=== PATIENT | female | born 1965 | race Caucasian/White ===

== ENCOUNTER → 2022-04-05 | Outpatient (CLI) | payer BC ==
--- NOTE | 2022-04-06 11:27 | XR ---
Lumbar spine HISTORY: Low back pain 3 views the lumbar spine No comparisons There is multilevel spondylosis. Loss of disc height is present intervertebral levels. Sclerosis is n oted in the posterior elements of the lower lumbar spine. Bone mineralization is reduced. Lumbar vert ebral bodies show preserved height and alignment, question a slight spinal curvature possibly positio nal. IMPRESSION: Degenerative disc disease, facet arthropathy and possible osteopenia.
== END | disposition home or self-care (01) ==
LOC: RADXRYALE 15:05
PROVIDERS: ATTEND Nurse Practitioner
DX: M51.36 Other intervertebral disc degeneration, lumbar region (principal)
CPT/HCPCS: 72100

== ENCOUNTER → 2022-05-07 | Outpatient (CLI) | payer BC ==
--- NOTE | 2022-05-07 12:53 | BD ---
EXAMINATION TYPE: Axial Bone Density DATE OF EXAM: 05/07/2022 COMPARISON: NONE CLINICAL HISTORY: 56 years year old Female. ICD-10 CODE: Z78.0 ASYMPTOMATIC MENOPAUSAL STATE Height: 64 Weight: 168.8 FRAX RISK QUESTIONS: Alcohol (3 or more units per day): no Family History (Parent hip fracture): no Glucocorticoids (More than 3mos): no (Ex: prednisone, prednisolone, methylprednisolone, dexamethasone, and hydrocortisone). History of Fracture in Adulthood: no Secondary Osteoporosis: 1. Type 1 Diabetes: no 2. Hyperthyroidism: no 3. Menopause before 45: no 4. Malnutrition: no 5. Chronic liver disease: no Rheumatoid Arthritis: no Current Tobacco Use: no RISK FACTORS HISTORY OF: Surgery to Spine/Hip(right/left)/Wrist (right/left): no Family History of Osteoporosis: no Active: yes Diet low in dairy products/other sources of calcium: yes Postmenopausal woman: yes Lost more than 2 inches in height since high school: no MEDICATIONS: Thyroid Medications: levothyroxine How Lon years Additional History: EXAM MEASUREMENTS: Bone mineral densitometry was performed using the [employer] System. Bone mineral density as measured about the Lumbar spine is: ----- L1-L4(G/cm2): 0.988 T Score Values are as follows: ----- L1: -1.6 ----- L2: -2.6 ----- L3: -0.9 ----- L4: -1.5 ----- L1-L4: -1.6 Bone mineral density : baseline Bone mineral density about the R hip (g/cm2): 0.838 Bone mineral density about the L hip (g/cm2): 0.772 T Score values are as follows: -----R Neck: -1.4 -----L Neck: -1.9 -----R Total: -0.6 -----L Total: -0.8 Bone mineral density : baseline FRAX%s: The graph provided illustrates a 8.7% chance for a major osteoporotic fx and a 1.0% chance fo r the hips probability for fx in 10 years time. IMPRESSION: Osteopenia (T Score between -2.5 and -1). There is slightly increased risk of fracture and the patient may be considered for treatment. Re-Screen 2-5 years. NOTE: T-SCORE=SD OF THE YOUNG ADULT MEAN.
--- NOTE | 2022-05-13 18:48 | MM ---
Reason for Exam: Screening (asymptomatic). Last mammogram was performed 4 year(s) and 7 month(s) ago. Patient History: Menarche at age 12. First Full-Term at age 25. Postmenopausal. 2012, Stereotactic Core Biopsy on the Left side. Maternal unspecified had breast cancer. Risk Values: Mitali 5 year model risk: 1.6%. NCI Lifetime model risk: 9.1%. Prior Study Comparison: 12/29/2004 Bilateral Screening Mammogram, [facility]. 02/26/2015 Bilateral MG screening mammo w CAD - 2, [facility]. 09/30/2017 Bilateral MG 3D screening mammo w/cad, [facility]. Tissue Density: The breast tissue is heterogeneously dense. This may lower the sensitivity of mammography. Findings: Analyzed By CAD. Microclip left breast from prior biopsy. Areas of asymmetric density in both breasts are unchanged. Overall Assessment: Benign, BI-RAD 2 Management: Screening Mammogram of both breasts in 1 year. 1. Patient should continue monthly self breast exams. 2. A clinical breast exam by your physician is recommended on an annual basis. 3. This exam should not preclude additional follow-up of suspicious palpable abnormalities. Electronically signed and approved by: Randell Chase M.D. Radiologist
== END | disposition home or self-care (01) ==
LOC: RADMAMWWP 07:44
PROVIDERS: ATTEND Family Medicine
DX: Z12.31 Encounter for screening mammogram for malignant neoplasm of breast (principal); Z78.0 Asymptomatic menopausal state; M85.89 Other specified disorders of bone density and structure, multiple sites
CPT/HCPCS: 77067; 77080

== ENCOUNTER → 2024-03-23 | Outpatient (CLI) | payer BC ==
--- NOTE | 2024-03-23 09:37 | MM ---
Reason for Exam: Follow-up at short interval from prior study. Last screening mammogram was performed 10 month(s) ago. Patient History: Menarche at age 12. First Full-Term at age 25. Postmenopausal. Patient has history of breast feeding. 2013, Stereotactic Core Biopsy on the Left side. Risk Values: Mitali 5 year model risk: 1.7%. NCI Lifetime model risk: 8.7%. Prior Study Comparison: 05/07/2022 Bilateral MG screening mammo w CAD, [facility]. 05/12/2023 Bilateral MG screening mammo w CAD, [facility]. 05/17/2023 Right MG 3D work up w/cad RT, [facility]. Tissue Density: Right: The breasts are heterogeneously dense, which may obscure small masses. Findings: Analyzed By CAD. Pattern appears stable. Patient return to screening mammography on schedule. No suspicious groups of microcalcifications, spiculated or lobular masses, architectural distortion or other secondary signs of malignancy are mammographically apparent. Overall Assessment: Benign, BI-RAD 2 Management: Screening Mammogram of both breasts in 3 months. A negative mammogram report should not preclude additional follow up of suspicious palpable abnormalities. Patient should continue monthly self breast exam. A clinical breast exam by your physician is recommended on an annual basis and results should be correlated with mammographic findings. Note on Mitali scores and lifetime risk: 1. A Mitali score greater than 3% is considered moderate risk. If this is the case, consider specialist referral to assess eligibility for a risk reducing agent. 2. If overall lifetime risk for the development of breast cancer is 20% or higher, the patient may qualify for future screening with alternating mammogram and breast MRI. Electronically signed and approved by: Volodymyr Salazar D.O. Radiologis
--- NOTE | 2024-03-25 17:24 | US ---
EXAMINATION TYPE: US pelvis complete transvag DATE OF EXAM: 03/23/2024 COMPARISON: NONE CLINICAL INDICATION: Female, 58 years old with history of N81.4 UTEROVAGINAL PROLAPSE; Patient states her uterus was falling out per her doctor yesterday. TECHNIQUE: Transvaginal (TV) and Transabdominal (TA) . Date of LMP: INBOUND TELEMARKETER, EXAM MEASUREMENTS: Uterus: 8.5 x 4.4 x 3.6 cm Endometrial Stripe: 0.2 cm 1. Uterus: Retroverted Heterogenous. Fundal focal nodular appearing fibroid- 3.6 x 3.9 x 2.9 cm 2. Endometrium: echogenic focus seen = 0.4 cm 3. Right Ovary: Obscured by overlying bowel gas 4. Left Ovary: Obscured by overlying bowel gas 5. Bilateral Adnexa: no free fluid 6. Posterior cul-de-sac: no free fluid Cervix- nabothian cysts Incidental nabothian cysts. Both ovaries are not visualized due to overlying bowel gas. Nonspecific e chogenic calcification within the endometrium. Endometrium normal thickness. No free fluid. Heterogen ous focal fundal intramural fibroid measuring up to 3.9 cm. No ultrasound evidence of uterine prolaps e at this time. IMPRESSION: 1. Fibroid changes of the uterus. 2. Nonvisualization of both ovaries due to overlying bowel gas.
== END | disposition home or self-care (01) ==
LOC: RADMAMWWP 08:49
PROVIDERS: ATTEND Family Medicine
DX: R92.331 Mammographic heterogeneous density, right breast (principal); N81.4 Uterovaginal prolapse, unspecified; D25.9 Leiomyoma of uterus, unspecified; Z78.0 Asymptomatic menopausal state
CPT/HCPCS: 76830; 76856; 77061; 77065

== ENCOUNTER → 2024-04-05 | Outpatient (CLI) | payer BC ==
--- NOTE | 2024-04-05 17:54 | US ---
EXAMINATION TYPE: US thyroid st tissue head/neck DATE OF EXAM: 04/05/2024 COMPARISON: NONE CLINICAL INDICATION: Female, 58 years old with history of E04.1 THYROID NODULE; hx of thyroid nodule. Pt states she has been on thyroid medication for years GLAND SIZE: Right Lobe: 2.9 x 1.4 x 1.2 cm Overall Parenchyma: heterogeneous Left Lobe: 3.6 x 1.2 x 1.0 cm Overall Parenchyma: heterogeneous Isthmus Thickness: 0.56 cm NODULES RIGHT: # of nodules measured on right: 0 LEFT: # of nodules measured on left: 0 ISTHMUS: # of nodules measured in the isthmus: 1 1. 1.0 X 1.1 x 0.5 cm solid or almost completely solid, isoechoic nodule, which is wider than tall, with ill-defined margins, without echogenic foci. Bilateral neck scanned, no evidence of lymphadenopathy. IMPRESSION: 1. No thyromegaly. 2. Subtle 1 cm TR 3 nodule in the isthmus 2017 ACR TI-RADS LEVEL: 3 *Highest TI-RADS level nodule reported
== END | disposition home or self-care (01) ==
LOC: RADUSWWP 14:41
PROVIDERS: ATTEND Family Medicine
DX: E04.1 Nontoxic single thyroid nodule (principal)
CPT/HCPCS: 76536

== ENCOUNTER → 2024-05-23 | Outpatient (CLI) | payer BC ==
[2024-05-23 15:15] LABS: Blood Urea Nitrogen 12.4 mg/dL (9.0-27.0); Carbon Dioxide 24.6 mmol/L (21.6-31.8); Chloride 106 mmol/L (96-109); Glucose 97 mg/dL (70-110); Potassium 4.3 mmol/L (3.5-5.5); Sodium 142 mmol/L (135-145)
[2024-05-23 15:20] LABS: Basophils # (A) 0.06 X 10*3/uL (0.00-0.10); Eosinophils # (A) 0.18 X 10*3/uL (0.04-0.35); Eosinophils % (A) 3.1 %; HCT 45.3 % (37.2-46.3); HGB 14.8 g/dL (12.0-15.0); Lymphocytes # (A) 1.47 X 10*3/uL (0.90-5.00); Lymphocytes % (A) 25.7 %; MCH 31.6 pg (27.0-32.0); MCHC 32.7 g/dL (32.0-37.0); MCV 96.6 FL (80.0-97.0); Mean Platelet Volume 9.9 FL (9.5-12.2); Monocytes # (A) 0.49 X 10*3/uL (0.20-1.00); Monocytes % (A) 8.6 %; NRBC Per 100 WBC 0 X 10*3/uL (0.00-0.01); Neutrophils # (A) 3.51 X 10*3/uL (1.80-7.70); Neutrophils % (A) 61.3 %; Platelet Count 353 X 10*3/uL (140-440); RBC 4.69 X 10*6/uL (4.10-5.20); RDW 12.3 % (11.5-14.5); WBC 5.73 X 10*3/uL (4.50-10.00)
== END | disposition home or self-care (01) ==
LOC: LABPAT 08:58
PROVIDERS: ATTEND Obstetrics & Gynecology
DX: Z01.818 Encounter for other preprocedural examination (principal); I10 Essential (primary) hypertension; N81.4 Uterovaginal prolapse, unspecified; R94.31 Abnormal electrocardiogram [ECG] [EKG]
CPT/HCPCS: 36415; 80051; 82565; 82947; 84520; 85025; 86850; 86900; 86901; 87086; 93005

== ENCOUNTER 2024-05-31 12:27 | Day surgery (SDC) | payer BC ==
[~2024-05-31 12:27] MED LIST: BACITRACIN OINT 1 EACH PACKET TOPICAL ONE; DEXAMETHASONE SOD PHOSPHATE 4 MG/ML 1 ML VIAL ONE; LACTATED RINGERS 1,000 ML BAG ONE; LIDOCAINE 1% INJ 10MG/ML (20 ML MDV) ONE; MIDAZOLAM 2 MG/2 ML VIAL ONE; ONDANSETRON 4 MG/2 ML VIAL ONE; PROPOFOL 10 MG/ML 20 ML VIAL IV ONE; SODIUM CHLORIDE 0.9% 100 ML BAG IV ONE; SODIUM CHLORIDE 0.9% 50 ML BAG ONE; SUCCINYLCHOLINE CHLORIDE 200 MG/10 ML VIAL IV ONE; VASOPRESSIN 20 UNIT/ML 1 ML VIAL ONE; ceFAZolin 1,000 MG VIAL ONE; fentaNYL (PF) 50 MCG/ML 2 ML AMP ONE
[2024-05-31] MEDS ORDERED: IBUPROFEN 600 MG TAB PO ONE ×2 (12:50→20:54)
[2024-05-31] MEDS ORDERED: Acetaminophen-Codeine 300-30mg TAB ONE ×2 (13:41→18:26)
[2024-05-31] MEDS ORDERED: SENNOSIDES-DOCUSATE SODIUM 1 EACH TAB PO ONE (20:55)
[2024-06-01] MEDS ORDERED: LACTATED RINGERS 1,000 ML BAG ONE
[2024-06-01] MEDS ORDERED: ACETAMINOPHEN TAB 325 MG TAB ONE ×2 (00:07→06:21)
[2024-06-01] MEDS ORDERED: IBUPROFEN 600 MG TAB PO ONE ×2 (03:01→10:33)
[2024-06-01] MEDS ORDERED: SENNOSIDES-DOCUSATE SODIUM 1 EACH TAB PO ONE (08:11)
== END 2024-06-01 11:30 | disposition home or self-care (01) ==
LOC: PREINTOOBSV 12:27 → FBPOP 12:27 → PREINTOOBSV 14:10 → UNDODISOB 06-01 11:30 → FBPOP 06-01 11:30
PROVIDERS: ATTEND Obstetrics & Gynecology
DX: N81.4 Uterovaginal prolapse, unspecified (principal); N84.0 Polyp of corpus uteri; N80.03 Adenomyosis of the uterus; D25.1 Intramural leiomyoma of uterus; I10 Essential (primary) hypertension; E03.9 Hypothyroidism, unspecified; Z79.890 Hormone replacement therapy; Z79.899 Other long term (current) drug therapy; Z88.2 Allergy status to sulfonamides
CPT/HCPCS: 88307

== ENCOUNTER → 2024-07-24 | Outpatient (CLI) | payer BC ==
--- NOTE | 2024-07-25 10:20 | MM ---
Reason for Exam: Screening (asymptomatic). Last mammogram was performed 1 year(s) and 3 month(s) ago. Patient History: Menarche at age 12. First Full-Term at age 25. Hysterectomy at age 58. Postmenopausal. Patient has history of breast feeding. 2013, Stereotactic Core Biopsy on the Left side. Risk Values: Mitali 5 year model risk: 1.7%. NCI Lifetime model risk: 8.7%. Prior Study Comparison: 05/12/2023 Bilateral MG screening mammo w CAD, [facility]. 05/17/2023 Right MG 3D work up w/cad RT, [facility]. 03/23/2024 Right MG 3D diag mammo w/cad RT, [facility]. Tissue Density: The breasts are heterogeneously dense, which may obscure small masses. Findings: Analyzed By CAD. Left breast biopsy clip. Right breast: There is no suspicious group of microcalcifications or new suspicious mass. Left breast: There is no suspicious group of microcalcifications or new suspicious mass. Overall Assessment: Benign, BI-RAD 2 Management: Screening Mammogram of both breasts in [address] [facility] will attempt to contact patient to return for supplemental views and ultrasound if indicated. Patient should continue monthly self-breast exams. A clinical breast exam by your physician is recommended on an annual basis. This exam should not preclude additional follow-up of suspicious palpable abnormalities. Note on Mitali scores and lifetime risk: 1. A Mitali score greater than 3% is considered moderate risk. If this is the case, consider specialist referral to assess eligibility for a risk reducing agent. 2. If overall lifetime risk for the development of breast cancer is 20% or higher, the patient may qualify for future screening with alternating mammogram and breast MRI. [facility], , 07/25/2024 10:17 AM. Electronically signed and approved by: Raimundo Eagle DO
== END | disposition home or self-care (01) ==
LOC: RADMAMWWP 09:17
PROVIDERS: ATTEND Family Medicine
DX: Z12.31 Encounter for screening mammogram for malignant neoplasm of breast
CPT/HCPCS: 77063; 77067

== ENCOUNTER 2025-04-05 11:39 | Day surgery (SDC) | payer BC ==
[~2025-04-05 11:39] MED LIST changes: -BACITRACIN OINT 1 EACH PACKET TOPICAL ONE; -DEXAMETHASONE SOD PHOSPHATE 4 MG/ML 1 ML VIAL ONE; -LACTATED RINGERS 1,000 ML BAG ONE; +LIDOCAINE 1% (10MG/ML) FOR IV START INTRADERMA PRN; -LIDOCAINE 1% INJ 10MG/ML (20 ML MDV) ONE; -MIDAZOLAM 2 MG/2 ML VIAL ONE; -ONDANSETRON 4 MG/2 ML VIAL ONE; -PROPOFOL 10 MG/ML 20 ML VIAL IV ONE; -SODIUM CHLORIDE 0.9% 100 ML BAG IV ONE; -SODIUM CHLORIDE 0.9% 50 ML BAG ONE; -SUCCINYLCHOLINE CHLORIDE 200 MG/10 ML VIAL IV ONE; -VASOPRESSIN 20 UNIT/ML 1 ML VIAL ONE; -ceFAZolin 1,000 MG VIAL ONE; -fentaNYL (PF) 50 MCG/ML 2 ML AMP ONE
[2025-04-05] MEDS: IV FLUID CONTINUATION 1,000 ML IV ONE (13:07)
[2025-04-05 13:11] VITALS: TEMP 97.6
[2025-04-05] MEDS: LACTATED RINGERS 1,000 ML IV SCH (13:16)
[2025-04-05] MEDS ORDERED: PROPOFOL 10 MG/ML 20 ML VIAL IV ONE (14:10)
[2025-04-05] MEDS ORDERED: LIDOCAINE 2% (PF) 20 MG/ML 5 ML VIAL ONE (14:10)
--- NOTE | 2025-04-05 14:30 | P.PCN ---
Date of Procedure: 04/05/25 Procedure(s) Performed: BRIEF HISTORY: Patient is a 59-year-old pleasant white male scheduled for an elective colonoscopy as a part of screening for prior history of colon polyps. Last colonoscopy was 3 years ago and was noted to have a tubular adenoma. PROCEDURE PERFORMED: Colonoscopy. PREOPERATIVE DIAGNOSIS: Screening for history of colon polyps. IV sedation per Anesthesia. PROCEDURE: After informed consent was obtained, the patient, was brought into the endoscopy unit. IV sedation was administered by Anesthesia under continuous monitoring. Digital rectal examination was normal. Initially the Olympus CF-160 flexible video colonoscope was then inserted in the rectum, gradually advanced into the cecum without any difficulty. Careful examination was performed as the scope was gradually being withdrawn. Ileocecal valve and the appendiceal orifice were visualized and appeared normal. Prep was excellent. Mucosa of the cecum, ascending colon, transverse colon, descending colon, sigmoid colon, and rectum appeared normal. Retroflexion was performed in the rectum and no lesions were seen. The patient tolerated the procedure well. IMPRESSION: Normal-appearing colon from rectum to cecum no evidence of colorectal neoplasia. RECOMMENDATIONS: Findings of this examination were discussed with the patient as well as her family. She was advised to have repeat screening colonoscopy in 10 years..
[2025-04-05 14:46] VITALS: BP 128/72; PULSE 85; RESP 16
== END 2025-04-05 15:15 | disposition home or self-care (01) ==
LOC: ORWHC2ENDO 11:39
PROVIDERS: ATTEND Internal Medicine Gastroenterology
DX: Z12.11 Encounter for screening for malignant neoplasm of colon (principal); E78.5 Hyperlipidemia, unspecified; M19.90 Unspecified osteoarthritis, unspecified site; E03.9 Hypothyroidism, unspecified; F17.200 Nicotine dependence, unspecified, uncomplicated; Z79.890 Hormone replacement therapy; Z86.0101 Personal history of adenomatous and serrated colon polyps; Z79.899 Other long term (current) drug therapy; Z88.2 Allergy status to sulfonamides
CPT/HCPCS: 45378; J2704; J2003

== ENCOUNTER → 2025-05-10 | Outpatient (CLI) | payer BC ==
--- NOTE | 2025-05-10 13:15 | US ---
EXAMINATION TYPE: US thyroid st tissue head/neck DATE OF EXAM: 05/10/2025 COMPARISON: US 04/05/24 CLINICAL INDICATION: Female, 59 years old with history of E039 HYPOTHYROIDISM; on thyroid meds for se veral years. TECHNIQUE: Grayscale and color Doppler imaging of the thyroid gland. FINDINGS: GLAND SIZE: Right Lobe: 3.4 x 1.3 x 1.5 cm Overall Parenchyma: heterogeneous Left Lobe: 3.3 x 1.1 x 1.2 cm Overall Parenchyma: heterogeneous Isthmus Thickness: 0.6 cm NODULES RIGHT: # of nodules measured on right: 0 LEFT: # of nodules measured on left: 0 ISTHMUS: # of nodules measured in the isthmus: 1 1. 1.0 X 0.6 x 1.1 cm Prior size: 1.0 x 0.5 x 1.0 cm TIRADS Score: 3 TIRADS Category 3 Composition: Solid or almost completely solid (2 points). Echogenicity: Hyperechoic or isoechoic (1 point). Shape: Wider than tall (0 points). Margin: Smooth (0 points). Echogenic foci: None or large comet-tail artifacts (0 points) Recommendation: If >2.5cm: FNA; If >1.5cm: Follow up at 1,3,5 years Bilateral neck scanned, no evidence of lymphadenopathy. IMPRESSION: Isthmus nodule does not meet criteria for follow-up or biopsy TI-RADS assessment score and recommendation for follow-up based on appropriate scoring and treatment protocols. TR1 Benign No FNA TR2 Not suspicious No FNA TR3: If nodule size is ? 2.5 cm, FNA is recommended. If nodule size is ? 1.5 cm, follow-up imaging at 1, 3, and 5 years is recommended. TR4: If nodule size is ? 1.5 cm, FNA is recommended. If nodule size is ? 1.0 cm, follow-up imaging at 1, 2, 3, and 5 years is recommended. TR5: If nodule size is ? 1.0 cm, FNA is recommended. If nodule size is ? 0.5 cm, annual follow-up for up to 5 years is recommended. TR 1 thyroid nodules have a 0.3 % risk of malignancy. TR 2 thyroid nodules have a 1.5 % risk of malignancy. TR 3 thyroid nodules have a 4.8 % risk of malignancy. TR 4 thyroid nodules have a 9.1 % risk of malignancy. TR 5 thyroid nodules have a 35 % risk of malignancy. [email or web address] [facility], , 05/10/2025 1:12 PM
--- NOTE | 2025-05-13 08:05 | BD ---
EXAMINATION TYPE: Axial Bone Density DATE OF EXAM: 05/10/2025 CLINICAL HISTORY: 59 years old Female. ICD-10 CODE: Z780 ASYMPTOMATIC KELLIE , Additional History: Height: 5 ft 3 3/4 in Weight: 173 FRAX RISK QUESTIONS: Alcohol (3 or more units per day): no Family History (Parent hip fracture): no Glucocorticoids (More than 3mos): no (Ex: prednisone, prednisolone, methylprednisolone, dexamethasone, and hydrocortisone). History of Fracture in Adulthood: yes Secondary Osteoporosis: 1. Type 1 Diabetes: no 2. Hyperthyroidism: no 3. Menopause before 45: yes 4. Malnutrition: no 5. Chronic liver disease: no Rheumatoid Arthritis: no Current Tobacco Use: no RISK FACTORS HISTORY OF: Surgery to Spine/Hip(right/left)/Wrist (right/left): no MEDICATIONS: Thyroid Medications: yes Which medication: levothyroxine How Lon years Osteoporosis Medications: yes Which medication: alendronate How Lon years EXAM MEASUREMENTS: Bone mineral densitometry was performed using the [employer] System. Bone mineral density as measured about the Lumbar spine is: ----- L1-L4(G/cm2): 0.975 T Score Values are as follows: ----- L1: -2.0 ----- L2: -2.2 ----- L3: -1.7 ----- L4: -1.3 ----- L1-L4: -1.7 Z Score Values are as follows: ----- L1: -1.1 ----- L2: -1.3 ----- L3: -0.8 ----- L4: -0.4 ----- L1-L4: -0.8 Bone mineral density has: decreased -1.3 % since study of: 2021 Bone mineral density about the R hip (g/cm2): 0.863 Bone mineral density about the L hip (g/cm2): 0.818 T Score values are as follows: -----R Neck: -1.3 -----L Neck: -1.6 -----R Total: -0.5 -----L Total: -0.5 Z Score values are as follows: -----R Neck: -0.2 -----L Neck: -0.6 -----R Total: 0.2 -----L Total: 0.2 Bone mineral density has: increased 3.1 % since study of: 2021 FRAX%s: The graph provided illustrates a 14.3 % chance for a major osteoporotic fx and a 1.4 % chance for the hips probability for fx in 10 years time. IMPRESSION: Osteopenia (T Score between -2.5 and -1). There is slightly increased risk of fracture and the patient may be considered for treatment. Re-Screen 2-5 years. NOTE: T-SCORE=SD OF THE YOUNG ADULT MEAN. [facility], , 05/13/2025 8:02 AM
== END | disposition home or self-care (01) ==
LOC: RADBDWWP 11:51
PROVIDERS: ATTEND Family Medicine
DX: E03.9 Hypothyroidism, unspecified (principal); M85.89 Other specified disorders of bone density and structure, multiple sites; Z78.0 Asymptomatic menopausal state
CPT/HCPCS: 76536; 77080